=== PATIENT | female | born 2000 | race Caucasian/White ===

== ENCOUNTER 2024-10-26 10:58 | Inpatient (IN) | payer BC, OTHER ==
[2024-10-26] MEDS ORDERED: Misoprostol 200 MCG TAB PR PRN (11:12)
[2024-10-26] MEDS ORDERED: Lorazepam 2 MG/ML VIAL SLOW IVP PRN (11:12)
[2024-10-26] MEDS ORDERED: Labetalol HCl 100 MG/20 ML VIAL SLOW IVP PRN ×3 (11:12)
[2024-10-26] MEDS ORDERED: Acetaminophen 500 MG TAB PO PRN (11:12)
[2024-10-26] MEDS ORDERED: Carboprost 250 MCG/ML AMP IM PRN (11:12)
[2024-10-26] MEDS ORDERED: Zolpidem Tartrate 5 MG TAB PO PRN (11:12)
[2024-10-26] MEDS ORDERED: Promethazine HCl 25 MG/ML VIAL IM PRN ×2 (11:12→17:46)
[2024-10-26] MEDS ORDERED: hydrALAZINE 20 MG/ML VIAL SLOW IVP PRN ×3 (11:12→22:19)
[2024-10-26] MEDS ORDERED: Ondansetron PF 4 MG/2 ML Vial IVP PRN ×3 (11:12→17:46)
[2024-10-26] MEDS ORDERED: Calcium Gluc 4.6 MEQ/10 ML (100 MG/ML) SLOW IVP PRN (11:12)
[2024-10-26] MEDS ORDERED: HYDROcodone/Acetaminophen 5/325 mg Tablet PO PRN ×2 (11:12)
[2024-10-26] MEDS ORDERED: Diphenoxylate HCl/Atropine Tablet PO PRN ×2 (11:12)
[2024-10-26] MEDS ORDERED: Ibuprofen 800 MG TAB PO PRN (11:12)
[2024-10-26] MEDS ORDERED: Lidocaine 1% (PF) 30 ML VIAL SC PRN (11:12)
[2024-10-26] MEDS ORDERED: Tranexamic Acid 1,000 MG/10 ML VIAL IVP PRN (11:12)
[2024-10-26] MEDS ORDERED: Oxytocin 30 units/NS 500 ML 500 ML IV SCH (11:15)
[2024-10-26] MEDS ORDERED: Lactated Ringer's 1,000 ML IV SCH (11:15)
[2024-10-26 13:12] LABS: Hematocrit 37.7 % (34.9-44.5); Hemoglobin 12.6 g/dL (12.0-15.5); Mean Corpuscular HGB CONC 33.4 g/dL (32.0-36.0); Mean Corpuscular Hemoglobin 28.4 pg (27.0-33.0); Mean Corpuscular Volume 85.1 fL (81.6-98.3); Mean Platelet Volume 10.6 fL (7.4-10.4); Platelet Count 206 10x3/uL (150-450); RBC Distribution Width 13.2 % (11.5-14.5); Red Blood Cell (RBC) Count 4.43 10x6/uL (3.90-5.03); White Blood Cell (WBC) Count 8.79 10x3/uL (3.5-10.5)
[2024-10-26 13:34] VITALS: BMI 37.8
[2024-10-26 13:34] LABS: ALT (SGPT) 17 U/L (Less than 34); AST (SGOT) 18 U/L (11-34); Albumin 2.9 g/dL (3.1-4.5); Alkaline Phosphatase 110 U/L (40-110); Anion Gap 14 mmol/L (10-20); BUN (Urea Nitrogen) 8 mg/dL (7.0-18.7); Bilirubin, Total 0.2 mg/dL (0.3-1.2); Calc. Creatinine Clearance 202 mL/min (70-130); Calcium 8.8 mg/dL (7.8-10.44); Carbon Dioxide 18 mmol/L (22-29); Chloride 110 mmol/L (98-107); Estimated GFR 124; Globulin 3.3 g/dL (2.4-3.5); Glucose 83 mg/dL (70-105); Potassium 4.1 mmol/L (3.5-5.1); Protein, Total 6.2 g/dL (6.0-8.3); Sodium 138 mmol/L (136-145)
[2024-10-26] MEDS: Misoprostol 100 MCG TAB VAG SCH (13:37)
[2024-10-26 13:48] LABS: HBsAg Index 0.21 S/CO (0-0.99); Hep B Surf Ag - L&D Non-Reactive S/CO (NonReactive)
[2024-10-26 13:49] LABS: Syphilis Antibody Nonreactive (Nonreactive); Syphilis Antibody Index 0.02 S/CO (<1.00 Non-Reactive)
[2024-10-26 14:20] LABS: Creatinine, Urine 152.82 mg/dL (16.00-327.00)
[2024-10-26] MEDS: Terbutaline Sulfate 1 MG/ML VIAL ONE (16:16)
[2024-10-26] MEDS ORDERED: Bicitra 30 ML UDCUP PO PRN (16:27)
[2024-10-26] MEDS ORDERED: Famotidine/PF 20 mg/2ml Vial SLOW IVP PRN (16:27)
[2024-10-26] MEDS: Clindamycin/D5W 900 MG in Premix 1 BAG IVPB SCH (16:54)
[2024-10-26] MEDS ORDERED: fentaNYL 50 mcg/mL 1 mL Vial SLOW IVP PRN (17:46)
[2024-10-26] MEDS ORDERED: Morphine 4 MG/ML VIAL SLOW IVP PRN (17:46)
[2024-10-26] MEDS ORDERED: diphenhydrAMINE 50 MG/ML VIAL IVP PRN (17:46)
[2024-10-26] MEDS ORDERED: Naloxone HCl 0.4 mg/ml Vial IV PRN (17:46)
[2024-10-26] MEDS ORDERED: Moisturizing Cream (Eucerin) 113 GM JAR TOP PRN (17:46)
[2024-10-26] MEDS ORDERED: Meperidine HCl/PF 25 MG (1 mL) VIAL SLOW IVP PRN (17:46)
[2024-10-26] MEDS ORDERED: Naloxone HCl 0.4 mg/ml Vial IVP PRN ×2 (17:46)
[2024-10-26] MEDS ORDERED: Communication Order-Pharmacy FS SCH (18:00)
[2024-10-26] MEDS ORDERED: Ketorolac Tromethamine 30 MG (1 mL) VIAL IVP SCH (18:00)
[2024-10-26] MEDS: Oxytocin 30 units/NS 500 ML 500 ML IV SCH (20:39)
[2024-10-26] MEDS ORDERED: Lanolin Ointment 7 GM TUBE TOP PRN (22:19)
[2024-10-26] MEDS ORDERED: Bisacodyl 10 MG SUPP PR PRN (22:19)
[2024-10-26] MEDS ORDERED: diphenhydrAMINE 25 MG CAP PO PRN (22:19)
[2024-10-26] MEDS ORDERED: Acetaminophen 325 MG TAB PO PRN (22:19)
[2024-10-26] MEDS: CEFAZOLIN 2 GM VIAL ONE (23:13)
[2024-10-26] MEDS: fentaNYL 50 mcg/mL 1 mL Vial ONE (23:14)
[2024-10-26] MEDS: Ondansetron PF 4 MG/2 ML Vial ONE (23:14)
[2024-10-26] MEDS: PHENYLEPHRINE-NS 100 MCG/ML 10 ML SYRINGE ONE (23:14)
[2024-10-26] MEDS: Morphine PF 10 MG/10 ML VIAL ONE (23:14)
[2024-10-26] MEDS: ePHEDrine Sulfate 50 MG/10 ML VIAL ONE (23:14)
[2024-10-26] MEDS: Oxytocin 10 UNITS/ML VIAL ONE ×2 (23:14→23:15)
[2024-10-26] MEDS: Docusate 100 MG CAP PO SCH (23:15)
[2024-10-26] MEDS: Ferrous Sulfate 325 MG TAB PO SCH (23:15)
[2024-10-27] MEDS: Ketorolac Tromethamine 30 MG (1 mL) VIAL IVP PRN (00:12)
[2024-10-27 05:46] LABS: Hemoglobin 9.4 g/dL (12.0-15.5); Mean Corpuscular HGB CONC 33.6 g/dL (32.0-36.0); Mean Corpuscular Hemoglobin 28.4 pg (27.0-33.0); Mean Corpuscular Volume 84.6 fL (81.6-98.3); Mean Platelet Volume 10.4 fL (7.4-10.4); Platelet Count 158 10x3/uL (150-450); RBC Distribution Width 13.4 % (11.5-14.5); Red Blood Cell (RBC) Count 3.31 10x6/uL (3.90-5.03); White Blood Cell (WBC) Count 8.12 10x3/uL (3.5-10.5)
[2024-10-27] MEDS: NIFEdipine XL 30 MG ER.TAB PO SCH (08:57)
[2024-10-27] MEDS: Docusate 100 MG CAP PO SCH (08:58)
[2024-10-27] MEDS: Ferrous Sulfate 325 MG TAB PO SCH (08:58)
[2024-10-27] MEDS: Prenatal Vitamin 1 TAB PO SCH (08:58)
[2024-10-27] MEDS: HYDROcodone/Acetaminophen 5/325 mg Tablet PO PRN (10:09)
[2024-10-27] MEDS: Simethicone Chewable 80 MG TAB PO PRN (13:31)
[2024-10-28] MEDS: Ibuprofen 800 MG TAB PO SCH (00:16)
[2024-10-28] MEDS: Boostrix 0.5 ML (Tdap) VIAL (>/=7 yrs of age) IM ONE (07:51)
[2024-10-28 20:28] VITALS: TEMP 98.4
[2024-10-28] MEDS: HYDROcodone/Acetaminophen 5/325 mg Tablet PO PRN (22:06)
[2024-10-29 08:32] VITALS: BP 139/87
== END 2024-10-29 13:15 | disposition home or self-care (01) | DRG 787 ==
LOC: CSHLD 10:58 → CSHPP 21:35
PROVIDERS: ADMIT Obstetrics & Gynecology; ATTEND Obstetrics & Gynecology
PROC: 10D00Z1 Extraction of Products of Conception, Low, Open Approach (ICD-10-PCS; principal; 2024-10-26)
PROC: 3E0P7VZ Introduction of Hormone into Female Reproductive, Via Natural or Artificial Opening (ICD-10-PCS; 2024-10-26)
DX: O14.94 Unspecified pre-eclampsia, complicating childbirth (principal); O41.03X0 Oligohydramnios, third trimester, not applicable or unspecified; O76 Abnormality in fetal heart rate and rhythm complicating labor and delivery; Z3A.40 40 weeks gestation of pregnancy; Z37.0 Single live birth
CPT/HCPCS: 36415; 51702; 80053; 82570; 84156; 85027; 86780; 86850; 86900; 86901; 87340; 99285; J1885; J2274; J2405; J2590; J3010; J3105; J3490